=== PATIENT | male | born 1980 ===

== ENCOUNTER 2020-08-17 14:15 | Outpatient (REF) | payer MEDICAID, SELFPAY ==
[2020-08-21 03:51] LABS: SARS-CoV-2 RNA Undetected (Undetected); SARS-CoV-2 Specimen Source Nasal
== END 2020-08-17 14:35 ==
LOC: NCHCN 14:15
PROVIDERS: PCP Physician Assistant Medical; Visit Provider Nurse Practitioner Family
DX: J06.9 Acute upper respiratory infection, unspecified (principal)
CPT/HCPCS: U0003